=== PATIENT | male | born 1985 | race African-American/Black ===

== ENCOUNTER 2019-07-15 03:53 | Emergency (ER) | payer BC, SELFPAY ==
--- NOTE | ~2019-07-15 | CT_ITS ---
EXAMINATION: CT abdomen pelvis w con DATE: 07/15/2019 05:07 INDICATION: Epigastric abdominal pain. Constipation. TECHNIQUE: Computed tomography (CT) of the abdomen and pelvis was performed with 100 mL Omnipaque 350 intravenous contrast. Automated exposure control and iterative reconstruction technique were employe d. The dose-length product was 218.28 mGy-cm. COMPARISON: None. FINDINGS: The visualized portions of the lung bases are clear without pneumonia or pleural effusion. The heart size is normal. No pericardial effusion. The liver, gallbladder, spleen, pancreas, adrenal glands, and kidneys are normal. There are no dilated loops of bowel. The appendix is not visualized. There are no pathologically enlarged lymph nodes. There is no free intraperitoneal fluid. There are b enign bone islands in the pelvis. IMPRESSION: 1. No specific etiology for the patient's symptoms. Reviewed, dictated and finalized at location A.
[2019-07-15 03:56] VITALS: BP 146/102; PULSE 80; RESP 18; TEMP 36.7; O2SAT 100
[2019-07-15 04:30] LABS: Basophils Absolute Auto 0.1 K/mm3 (0.0-0.1); Basophils Percent Auto 0.8 % (0.2-1.2); Eosinophils Absolute Auto 0.1 K/mm3 (0-0.3); Eosinophils Percent Auto 1.7 % (0-4.4); Hematocrit 47.2 % (42.0-52.0); Immature Granulocyte Absolute 0.02 K/mm3 (0.00-0.031); Immature Granulocyte Percent A 0.2 % (0-0.5); Lymphocytes Percent Auto 32.3 % (18.3-44.2); Mean Corpuscular HGB Conc 33.9 g/dl (32-36); Mean Corpuscular Hemoglobin 34.5 pg (26-34); Mean Corpuscular Volume 101.7 fl (80-100); Mean Platelet Volume 10.2 fl (7.4-10.4); Monocytes Absolute Auto 1.5 K/mm3 (0.1-0.6); Monocytes Percent Auto 17.6 % (2.6-8.5); Neutrophils Percent Auto 47.4 % (45.5-73.1); Platelet Count Result 221 k/mm3 (150-375); Red Blood Count 4.64 M/mm3 (4.6-6.20); White Blood Count 8.4 K/mm3 (4.5-10.0)
--- NOTE | 2019-07-15 04:36 | ED.ABDPAIN ---
HPI - Abdominal Pain General Chief Complaint: Abdominal Pain Stated Complaint: abd pain x 2 wks Time Seen by Provider: 07/15/19 04:25 Source: patient Mode of arrival: ambulatory Limitations: no limitations History of Present Illness HPI narrative: This patient is 34 yo male who presents with complaint of epigastric abdominal pain x 2 weeks. He states he has had constant pain that has gradually worsened. He initially thought his pain was due to eating something bad but his pain has continued. He has decreased appetite and he states he has not had anything to eat in 3 days . He also states he has not had a bowel movement since Saturday and he normally has 3 BMs per day. He has also noticed his urine has been darker than normal and he is nauseated. He admits to drinking alcohol daily but he has not drank since Saturday. MD elicited complaint: abdominal pain Pain Consistency: constant Location: epigastric Severity: severe Pain scale (0-10): 7 Radiation: epigastric Exacerbating factors: movement Associated symptoms: nausea, constipation and anorexia Related Data Home Medications Medication Instructions Recorded Confirmed pantoprazole [Protonix] 20 mg PO BID 07/15/19 Allergies Allergy/AdvReac Type Severity Reaction Status Date / Time No Known Allergies Allergy Verified 07/15/19 04:03 Review of Systems Review of Systems: All systems reviewed & are unremarkable except as noted in HPI and below Constitutional: Constitutional: Denies chills and Denies fever(s) Respiratory: Respiratory: Denies cough and Denies dyspnea Gastrointestinal: Gastrointestinal: Reports abdominal pain, Reports constipation and Reports nausea Genitourinary: Genitourinary: Denies dysuria [facility] Past Medical History Medical History (Updated 07/15/19 @ 07:00 by Roestta Castellanos MD) Patient denies medical problems Surgical History Surgical History (Updated 07/15/19 @ 06:53 by Rosetta Castellanos MD) No pertinent past surgical history Social History Social History (Updated 07/15/19 @ 04:37 by Rosetta Castellanos MD) Smoking packs per day: 1 Smoking cigarettes per day: 20.0 Smoking status: Current every day smoker Alcohol intake: current Alcohol use details: drinks daily Exam Narrative: Exam Narrative: GENERAL: Well-appearing, well-nourished, and in no acute distress. HEAD: Normocephalic, atraumatic EYES: PERRLA and EOMI, conjunctiva clear without discharge THROAT:Mucous membranes moist, Oropharynx normal without erythema, exudate, peritonsillar swelling or fluctuance NECK: Supple, without lymphadenopathy or mass RESPIRATORY: No respiratory distress, Airway patent, Respirations non-labored, Clear to auscultation without rales, rhonchi or wheeze HEART: Regular rate and rhythm. No murmur heard. Normal peripheral pulses. ABDOMEN: Soft, epigastric tenderness with guarding nondistended, normal active bowel sounds. No masses. No rebound EXTREMITIES: No edema, normal strength with full range of motion. SKIN: Warm, dry, normal color without rash NEURO: Alert and oriented x3. CN 2-12 grossly intact. No focal deficits. PSYCH: Normal mood and affect. Course Reevaluation(s) Reevaluation #1: I discussed with patient that he was found to have alcoholic hepatitis. CT read possible colitis but patient has no diarrhea or leukocytosis. I do not think this is due to colitis. He will continue taking his prescribed PPI. Date: 07/15/19 Time: 06:54 Vital Signs Vital signs: Vital Signs Temperature 98.1 F 07/15/19 03:56 Pulse Rate 80 07/15/19 03:56 Respiratory Rate 18 07/15/19 03:56 Blood Pressure 146/102 H 07/15/19 03:56 Pulse Oximetry 100 07/15/19 03:56 Temperature 98.1 F 07/15/19 03:56 Pulse Rate 61 07/15/19 07:25 Respiratory Rate 18 07/15/19 07:25 Blood Pressure 113/80 07/15/19 07:25 Pulse Oximetry 98 07/15/19 07:25 MDM - Abdominal Pain Lab Data Attestation: I revie
[2019-07-15 04:45] LABS: Add Urine Microscopic? YES; Appearance Urine Clear (Clear); Bacteria Urine Trace /hpf; Bilirubin Urine Negative (Negative); Blood Urine 1+ (Negative); Color Urine Amber (Yellow); Glucose Urine UA Negative (Negative); Ketones Urine 2+ mg/dL (Negative); Leukocyte Esterase Ur Negative LEU/UL (Negative); Mucus Urine Heavy /lpf; Nitrate Urine Negative (Negative); Protein Urine 2+ mg/dL (Negative); Squamous Epithelial Cell Urine Rare /hpf (Few)
[2019-07-15 04:48] LABS: Alanine Aminotransferase 159 U/L (4-50); Albumin Level 5.3 g/dL (3.5-5.1); Alkaline Phosphatase 119 U/L (38-126); Aspartate Amino Transferase 194 U/L (17-59); Bilirubin,Total 1.5 mg/dL (0.2-1.3); Blood Urea Nitrogen 12 mg/dL (9-20); Carbon Dioxide 30 mmol/L (22-30); Chloride 98 mmol/L (98-107); Estimated CRCL calculation 107 ml/min; Estimated Glomerular Filt Rate > 60; Glucose 85 mg/dL (75-110); Lipase 173 U/L (23-300); Potassium 3.6 mmol/L (3.4-5.0); Sodium 136 mmol/L (137-145)
[2019-07-15] MEDS: LACTATED RINGERS 1,000 ML 999 ML IV CONT (04:48)
[2019-07-15] MEDS: ONDANSETRON INJ 4 MG/2 ML VIAL IV PUSH (04:48)
[2019-07-15] MEDS: MORPHINE SULFATE 4 MG/ML INJ IV PUSH (04:49)
[2019-07-15 05:52] LABS: Hepatitis B Surface Antigen Negative (Negative)
[2019-07-15 05:59] LABS: HAV RESULT Negative (Negative); Hepatitis B Core IgM Result Negative (Negative)
[2019-07-15 06:09] LABS: Hepatitis C Virus Antibody Negative (Negative)
[2019-07-15 06:22] VITALS: BP 116/85; PULSE 60; RESP 20; O2SAT 98
[2019-07-15 07:25] VITALS: BP 113/80; PULSE 61; RESP 18; O2SAT 98
== END 2019-07-15 07:20 | disposition home or self-care (01) ==
PROVIDERS: Emergency Provider General Practice
DX: K70.10 Alcoholic hepatitis without ascites (principal); F17.210 Nicotine dependence, cigarettes, uncomplicated
CPT/HCPCS: 36415; 74177; 80053; 80074; 81001; 83690; 85025; 96361; 96374; 96375; 99284; J2270; J2405; J7120; Q9967

== ENCOUNTER 2019-09-25 00:26 | Emergency (ER) | payer BC, SELFPAY ==
[2019-09-25 00:29] VITALS: BP 149/95; PULSE 77; RESP 14; TEMP 37.1; O2SAT 100
[2019-09-25 01:10] LABS: Basophils Absolute Auto 0.1 K/mm3 (0.0-0.1); Basophils Percent Auto 0.7 % (0.2-1.2); Eosinophils Absolute Auto 0.1 K/mm3 (0-0.3); Eosinophils Percent Auto 1.7 % (0-4.4); Hematocrit 41.7 % (42.0-52.0); Hemoglobin 14.3 g/dL (14.0-18.0); Immature Granulocyte Absolute 0.02 K/mm3 (0.00-0.031); Immature Granulocyte Percent A 0.3 % (0-0.5); Lymphocytes Percent Auto 30.3 % (18.3-44.2); Mean Corpuscular HGB Conc 34.3 g/dl (32-36); Mean Platelet Volume 9.8 fl (7.4-10.4); Monocytes Percent Auto 13.4 % (2.6-8.5); Neutrophils Absolute Auto 3.9 K/mm3 (1.3-6.7); Neutrophils Percent Auto 53.6 % (45.5-73.1); Platelet Count Result 233 k/mm3 (150-375); Red Blood Count 4.21 M/mm3 (4.6-6.20); Red Cell Distribution Width 12.3 % (11.5-14.5); White Blood Count 7.3 K/mm3 (4.5-10.0)
[2019-09-25 01:23] LABS: Alanine Aminotransferase 25 U/L (4-50); Albumin Level 4.3 g/dL (3.5-5.1); Alkaline Phosphatase 86 U/L (38-126); Anion Gap 8.4 mmol/L (7-16); Aspartate Amino Transferase 44 U/L (17-59); Bilirubin,Total 0.6 mg/dL (0.2-1.3); Blood Urea Nitrogen 9 mg/dL (9-20); Calcium 9.3 mg/dL (8.4-10.2); Carbon Dioxide 29 mmol/L (22-30); Chloride 102 mmol/L (98-107); Estimated CRCL calculation 117 ml/min; Estimated Glomerular Filt Rate > 60; Glucose 107 mg/dL (75-110); Lipase 159 U/L (23-300); Potassium 3.4 mmol/L (3.4-5.0); Sodium 136 mmol/L (137-145)
[2019-09-25] MEDS: LIDOCAINE HCL 2% VISC SOLN 15 ML UDC 20 ML PO (01:36)
[2019-09-25] MEDS: SODIUM CHLORIDE 0.9% IV 1,000 ML 999 ML IV CONT (01:36)
[2019-09-25] MEDS: MAG HYDROX/AL HYDROX/SIMETH 30 ML UDC PO (01:36)
--- NOTE | 2019-09-25 01:47 | ED.ABDPAIN ---
HPI - Abdominal Pain General Chief Complaint: Abdominal Pain Stated Complaint: abdominal/back pain Time Seen by Provider: 09/25/19 00:47 History of Present Illness HPI narrative: Patient is a 34-year-old male who presents ER with epigastric abdominal pain for last 2 days. Burning and intermittent in nature. Associate with some mild lower back pain as well. No known trauma. Has not had alcohol for over a week. Has tried Pepto-Bismol without relief of discomfort. No fevers or chills or sweats. No diarrhea or constipation. Not associated with eating or drinking. Related Data Home Medications Medication Instructions Recorded Confirmed pantoprazole [Protonix] 20 mg PO BID 07/15/19 Allergies Allergy/AdvReac Type Severity Reaction Status Date / Time No Known Allergies Allergy Verified 09/25/19 00:32 Review of Systems Review of Systems: All systems reviewed & are unremarkable except as noted in HPI and below Constitutional: Constitutional: Denies chills, Denies fever(s) and Denies weakness ENT: Denies nasal congestion and Denies sore throat Gastrointestinal: Gastrointestinal: Reports abdominal pain, Denies constipation, Denies diarrhea, Denies nausea and Denies vomiting Musculoskeletal: Musculoskeletal: Reports back pain and Denies muscle cramps Neurologic: Denies focal weakness and Denies numbness PMFSH Past Medical History Medical History (Updated 09/25/19 @ 01:52 by Woo Nicholson MD) Patient denies medical problems Surgical History Surgical History (Updated 07/15/19 @ 06:53 by Rosetta Castellanos MD) No pertinent past surgical history Social History Social History (Updated 07/15/19 @ 04:37 by Rosetta Castellanos MD) Smoking packs per day: 1 Smoking cigarettes per day: 20.0 Smoking status: Current every day smoker Alcohol intake: current Exam Narrative: Exam Narrative: GENERAL: Well-appearing, well-nourished, and in no acute distress. HEAD: Normocephalic, atraumatic. ENT: Mucous membranes moist. CHEST: Clear to auscultation. No respiratory distress. HEART: Regular rate and rhythm. Normal peripheral pulses. ABDOMEN: Soft, mild epigastric discomfort without rebound or guarding, nondistended, normal active bowel sounds. EXTREMITIES: Normal range of motion. No edema. NEURO: Alert and oriented x3. PSYCH: Normal mood and affect. Course Course Emergency Course: Mild improvement with GI cocktail. Discussed discharge with Vivian, he reports this worked for him last time. Recommend follow-up with PCP and possible referral to GI. Vital Signs Vital signs: Vital Signs Temperature 98.7 F 09/25/19 00:29 Pulse Rate 77 09/25/19 00:29 Respiratory Rate 14 09/25/19 00:29 Blood Pressure 149/95 H 09/25/19 00:29 Pulse Oximetry 100 09/25/19 00:29 Temperature 98.7 F 09/25/19 00:29 Pulse Rate 77 09/25/19 00:29 Respiratory Rate 14 09/25/19 00:29 Blood Pressure 149/95 H 09/25/19 00:29 Pulse Oximetry 100 09/25/19 00:29 MDM - Abdominal Pain Lab Data Result diagrams: 09/25/19 01:03 09/25/19 01:03 Labs: Lab Results 09/25/19 09/25/19 Range/Units 01:03 01:03 WBC 7.3 (4.5-10.0) K/mm3 RBC 4.21 L (4.6-6.20) M/mm3 Hgb 14.3 (14.0-18.0) g/dL Hct 41.7 L (42.0-52.0) % MCV 99.0 (80-100) fl MCH 34.0 (26-34) pg MCHC 34.3 (32-36) g/dl RDW 12.3 (11.5-14.5) % Plt Count 233 (150-375) k/mm3 MPV 9.8 (7.4-10.4) fl Immature Gran % (Auto) 0.3 (0-0.5) % Neut % (Auto) 53.6 (45.5-73.1) % Lymph % (Auto) 30.3 (18.3-44.2) % Callahan % (Auto) 13.4 H (2.6-8.5) % Eos % (Auto) 1.7 (0-4.4) % Baso % (Auto) 0.7 (0.2-1.2) % Lymph # (Auto) 2.20 (0.9-3.2) K/mm3 Callahan # (Auto) 1.0 H (0.1-0.6) K/mm3 Eos # (Auto) 0.1 (0-0.3) K/mm3 Baso # (Auto) 0.1 (0.0-0.1) K/mm3 Abs Immat Gran (auto) 0.02 (0.00-0.031) K/mm3 Absolute Neuts (auto) 3.9 (1.3-6.7) K/mm3 Absolute Nucleated RBC
[2019-09-25 02:18] LABS: Add Urine Microscopic? YES; Appearance Urine Clear (Clear); Bacteria Urine Trace /hpf; Bilirubin Urine Negative (Negative); Blood Urine Negative (Negative); Color Urine Yellow (Yellow); Glucose Urine UA Negative (Negative); Ketones Urine 1+ mg/dL (Negative); Leukocyte Esterase Ur Negative LEU/UL (Negative); Mucus Urine Heavy /lpf; Nitrate Urine Negative (Negative); Protein Urine 1+ mg/dL (Negative); Specific Grav Ur 1.025 (1.001-1.035); Squamous Epithelial Cell Urine Occasional /hpf (Few); WBC Urine 0-3 /hpf
[2019-09-25 02:35] VITALS: BP 137/106; PULSE 63; RESP 18; O2SAT 100
[2019-09-25 02:40] VITALS: BP 137/106; PULSE 63; RESP 18; O2SAT 100
== END 2019-09-25 02:33 | disposition home or self-care (01) ==
PROVIDERS: Emergency Provider Emergency Medicine
DX: K21.9 Gastro-esophageal reflux disease without esophagitis (principal); F17.210 Nicotine dependence, cigarettes, uncomplicated
CPT/HCPCS: 36415; 80053; 81001; 83690; 85025; 96360; 99283; A9270; J7030

== ENCOUNTER 2020-01-06 22:23 | Emergency (ER) | payer BC, SELFPAY ==
[2020-01-06 22:27] VITALS: BP 149/97; PULSE 70; RESP 16; TEMP 36.5; O2SAT 100
--- NOTE | 2020-01-06 23:01 | ED.BACK ---
HPI - Back Pain/Injury General Chief Complaint: Back Pain/Injury Stated Complaint: lower back pain Time Seen by Provider: 01/06/20 22:48 Source: patient, RN notes reviewed and old records reviewed History of Present Illness HPI Narrative: 34-year-old male presents to emergency department for bilateral midthoracic back pain that started yesterday. Patient states he has never had this pain before in the past. Pain is worse with movement. He tried Tylenol earlier today to help with the pain. Denies chest pain or shortness of breath. No abdominal pain. No nausea or vomiting. No numbness or tingling. Related Data Home Medications Medication Instructions Recorded Confirmed pantoprazole [Protonix] 20 mg PO BID 07/15/19 Allergies Allergy/AdvReac Type Severity Reaction Status Date / Time No Known Allergies Allergy Verified 09/25/19 00:32 Review of Systems Review of Systems: Narrative: CONSTITUTIONAL: Denies fever, chills, or sweats. EYES: Denies visual changes, redness, or discharge. ENT: Denies rhinorrhea, congestion, sore throat, or otalgia. CARDIOVASCULAR: Denies chest pain, palpitations, or edema. RESPIRATORY: Denies cough or dyspnea. GASTROINTESTINAL: Denies abdominal pain, nausea, vomiting, or diarrhea. GENITOURINARY: Denies dysuria or hematuria. SKIN: Denies rash or itching. MUSCULOSKELETAL: Denies back pain, joint pain, or myalgia. NEUROLOGIC: Denies headache, numbness, dizziness, or weakness. PSYCHIATRIC: Denies anxiety or depression. All systems reviewed & are unremarkable except as noted in HPI and below (ROS) PMFSH Past Medical History Medical History Patient denies medical problems Surgical History Surgical History No pertinent past surgical history Social History Social History Smoking packs per day: 1 Smoking cigarettes per day: 20.0 Smoking status: Current every day smoker Alcohol intake: current Exam Narrative: Exam Narrative: GENERAL: Well-appearing, well-nourished, and in no acute distress. HEAD: Normocephalic, atraumatic. EYES: PERRLA and EOMI. ENT: Nares clear, no rhinorrhea or epistaxis. Mucous membranes moist. NECK: Supple. CHEST: Clear to auscultation. No respiratory distress. HEART: Regular rate and rhythm. No murmur heard. Normal peripheral pulses. ABDOMEN: Soft, nontender, nondistended, normal active bowel sounds. EXTREMITIES: Normal range of motion. No edema. SKIN: Warm, dry, no rash. NEURO: No focal deficits. Alert and oriented x3. PSYCH: Normal mood and affect. Course Reevaluation(s) Reevaluation #1: 2342 -reevaluated patient, pain improved. Pain likely musculoskeletal. Counseled patient to take Tylenol or Motrin/ibuprofen as needed for pain. Follow-up with his medical provider within 1 week return to emergency department if symptoms persist, worsen, or other concerns. Vital Signs Vital signs: Vital Signs Temperature 36.5 C 01/06/20 22:27 Pulse Rate 70 01/06/20 22:27 Respiratory Rate 16 01/06/20 22:27 Blood Pressure 149/97 H 01/06/20 22:27 Pulse Oximetry 100 01/06/20 22:27 Temperature 36.5 C 01/06/20 22:27 Pulse Rate 68 01/07/20 00:27 Respiratory Rate 18 01/07/20 00:27 Blood Pressure 133/98 H 01/07/20 00:27 Pulse Oximetry 98 01/07/20 00:27 MDM - Back Pain/Injury Medical Records Attestation: I reviewed the patient's medical records. Discharge Plan Discharge Clinical Impression: Musculoskeletal back pain Patient Disposition: Home, Self-Care Condition: Stable Instructions: Musculoskeletal Pain (ED) Additional Instructions: 1. Take Tylenol or Motrin/ibuprofen as needed for pain. 2. Follow-up with your medical provider within 1 week Prescriptions: No Action pantoprazole [Protonix] 20 mg Tablet,Delayed Release (Dr/Ec) 20 mg PO BID RF:
[2020-01-06] MEDS: KETOROLAC (*BKC) 60 MG/2 ML VIAL 30 MG IM (23:16)
[2020-01-06] MEDS: diazePAM INJ (*CRX) 10 MG/2 ML SYRINGE 2 MG IM (23:18)
[2020-01-07 00:27] VITALS: BP 133/98; PULSE 68; RESP 18; O2SAT 98
== END 2020-01-07 00:32 | disposition home or self-care (01) ==
PROVIDERS: Emergency Provider Emergency Medicine
DX: M54.6 Pain in thoracic spine (principal); F17.210 Nicotine dependence, cigarettes, uncomplicated
CPT/HCPCS: 96372; 99284; J1885; J3360

== ENCOUNTER 2021-03-12 10:21 | Emergency (ER) | payer BC, SELFPAY ==
--- NOTE | ~2021-03-12 | CT_ITS ---
EXAMINATION: CT abdomen pelvis w con DATE: 03/12/2021 11:31 INDICATION: Abdomen pain, nausea and vomiting TECHNIQUE: Computed tomography (CT) of the abdomen and pelvis was performed with 100 cc Omnipaque 350 intravenous contrast. The dose-length product was 232.79 mGy-cm. Automated exposure control and iter ative reconstruction technique were employed. COMPARISON: CT dated 07/15/2019. FINDINGS: Lung bases unremarkable. No significant pleural or pericardial effusion. No significant vas cular abnormality. No lymphadenopathy. Nonobstructive bowel gas pattern. No free air or free fluid. T he liver, spleen, pancreas, adrenal glands and kidneys are unremarkable. Gallbladder is present. No f ree air or free fluid. No acute osseous abnormality. IMPRESSION: 1. No acute abdominal abnormality. Reviewed, dictated and finalized at location A. EON PARTNER
--- NOTE | ~2021-03-12 | XR_ITS ---
EXAMINATION: XR chest 1V portable 03/12/2021 11:15 INDICATION: Epigastric pain PROCEDURE: AP portable chest COMPARISON: No prior studies for comparison. FINDINGS: The lungs are clear. The cardiomediastinal silhouette is within normal limits. There are no pleural effusions. There is no pneumothorax suspected. IMPRESSION: 1: NO ACUTE CARDIOPULMONARY DISEASE. Reviewed, dictated and finalized at location A. PAPERER
[2021-03-12 10:26] VITALS: BP 177/110; PULSE 59; RESP 16; TEMP 36.1; O2SAT 100
[2021-03-12 10:45] LABS: Basophils Percent Auto 0.4 % (0.2-1.2); Eosinophils Absolute Auto 0.1 K/mm3 (0-0.3); Hematocrit 42.5 % (42.0-52.0); Hemoglobin 14.6 g/dL (14.0-18.0); Immature Granulocyte Absolute 0.02 K/mm3 (0.00-0.031); Immature Granulocyte Percent A 0.3 % (0-0.5); Lymphocytes Absolute Auto 2.18 K/mm3 (0.9-3.2); Lymphocytes Percent Auto 30.8 % (18.3-44.2); Mean Corpuscular HGB Conc 34.4 g/dl (32-36); Mean Corpuscular Hemoglobin 35.5 pg (26-34); Mean Corpuscular Volume 103.4 fl (80-100); Mean Platelet Volume 9.4 fl (7.4-10.4); Monocytes Absolute Auto 1.2 K/mm3 (0.1-0.6); Monocytes Percent Auto 17.2 % (2.6-8.5); Neutrophils Absolute Auto 3.6 K/mm3 (1.3-6.7); Neutrophils Percent Auto 50.3 % (45.5-73.1); Platelet Count Result 216 k/mm3 (150-375); Red Blood Count 4.11 M/mm3 (4.6-6.20); Red Cell Distribution Width 12.8 % (11.5-14.5); White Blood Count 7.1 K/mm3 (4.5-10.0)
[2021-03-12 10:59] LABS: Alanine Aminotransferase 28 U/L (4-50); Albumin Level 4.7 g/dL (3.5-5.1); Alkaline Phosphatase 118 U/L (38-126); Anion Gap 10 mmol/L (8-16); Aspartate Amino Transferase 41 U/L (17-59); Bilirubin,Total 0.9 mg/dL (0.2-1.3); Blood Urea Nitrogen 7 mg/dL (9-20); Calcium 9.8 mg/dL (8.4-10.2); Carbon Dioxide 29 mmol/L (22-30); Chloride 99 mmol/L (98-107); Estimated CRCL calculation 100 ml/min; Estimated Glomerular Filt Rate > 60; Glucose 112 mg/dL (65-110); Lipase 133 U/L (23-300); Potassium 3.2 mmol/L (3.4-5.0); Sodium 138 mmol/L (137-145)
--- NOTE | 2021-03-12 10:59 | ECG_ITS ---
Measurements Intervals [place] Rate: 51 P: 78 DE: 173 QRS: 19 QRSD: 90 T: 23 QT: 441 QTc: 409 Interpretive Statements SINUS BRADYCARDIA POSSIBLE LEFT ATRIAL ENLARGEMENT INCOMPLETE RIGHT BUNDLE BRANCH BLOCK POSSIBLE LEFT VENTRICULAR HYPERTROPHY BASELINE ARTIFACT- I, II, III, AVR, AVL, AVF, V1-V6 BORDERLINE ECG Electronically Signed On 03-12-2021 16:03:24 TREATMENT SUPERVISOR by Rickie Saul D.O.
[2021-03-12] MEDS: FAMOTIDINE 20 MG/2 ML VIAL IV PUSH (11:16)
[2021-03-12] MEDS: SODIUM CHLORIDE 0.9% IV 1,000 ML 999 ML IV CONT (11:16)
[2021-03-12] MEDS: MORPHINE SULFATE (*CRX) 2 MG/ML INJ IV PUSH (11:16)
--- NOTE | 2021-03-12 11:18 | ED.GENADULT ---
HPI - General Adult General Chief complaint: Abdominal Pain Stated complaint: abd pain Time Seen by Provider: 03/12/21 10:35 Source: patient Mode of arrival: ambulatory Limitations: no limitations History of Present Illness HPI narrative: Patient presents for evaluation of abdominal pain for the last 2 days. He indicates he was having of a bowel movement when he had an episode of vomiting. He has had constant abdominal pain since that time. He states at times his pain is sharp and other times it is dull. He rates pain 8/10 in severity. Pain is worse with standing and walking. He had similar symptoms one time in the past but did not have a medical evaluation for his symptoms. He denies any chest pain, SOB or cough. His last bowel movement was today, loose, green in appearance and without the presence of blood or mucous. He did have nausea and dry heaves earlier today. He drinks a few ETOH containing beverages per day. He states that he smokes marijuana daily. No hx of abdominal surgeries. Denies any urinary symptoms. Related Data Home Medications Medication Instructions Recorded Confirmed pantoprazole [Protonix] 20 mg PO BID 07/15/19 Allergies Allergy/AdvReac Type Severity Reaction Status Date / Time No Known Allergies Allergy Verified 03/12/21 10:31 Review of Systems Review of Systems: CONSTITUTIONAL: Denies fever, chills, or sweats. EYES: Denies visual changes, redness, or discharge. ENT: Denies rhinorrhea, congestion, sore throat, or otalgia. CARDIOVASCULAR: Denies chest pain, palpitations, or edema. RESPIRATORY: Denies cough or dyspnea. GASTROINTESTINAL: Reports abdominal pain, nausea, vomiting, loose stool GENITOURINARY: Denies dysuria or hematuria. SKIN: Denies rash or itching. MUSCULOSKELETAL: Denies back pain, joint pain, or myalgia. NEUROLOGIC: Denies headache, numbness, dizziness, or weakness. PSYCHIATRIC: Denies anxiety or depression. [facility] Past Medical History Medical History Patient denies medical problems Surgical History Surgical History No pertinent past surgical history Family History Family History Mother No pertinent past medical history Social History Social History Smoking packs per day: 1 Smoking cigarettes per day: 20.0 Smoking status: Current every day smoker Alcohol intake: current Alcohol use details: drinks daily Substance use: current Substance use type: marijuana Additional living arrangements comments: Lives with girlfriend Gender identity (if verbalized by the patient): Male Sexual Orientation (if Verbalized by the Patient): Straight or Heterosexual Spiritual care concerns: No Exam Narrative: GENERAL: Well-appearing, well-nourished, and in no acute distress. HEAD: Normocephalic, atraumatic. EYES: PERRLA and EOMI. ENT: Nares clear, no rhinorrhea or epistaxis. Mucous membranes moist. Oropharynx without tonsillar hypertrophy exudate or other lesions. Bilateral TMs pearly medrano nonbulging NECK: Supple. No adenopathy or masses. No carotid bruits or JVD CHEST: Clear to auscultation. No respiratory distress. No wheezes rales or rhonchi HEART: Regular rate and rhythm. No murmur heard. Normal peripheral pulses. ABDOMEN: Soft, epigastric tenderness without rebound or guarding. Abdomen is nondistended, normal active bowel sounds. EXTREMITIES: Normal range of motion. No edema. SKIN: Warm, dry, no rash. NEURO: No focal deficits. Alert and oriented x3. PSYCH: Normal mood and affect. Course Course Emergency Course: This is a 35-year-old male who presented with complaints of nausea, vomiting, diarrhea. Influenza was negative. Covid was negative. Chest x-ray was negative. CT abdomen pelvis was negative.
[2021-03-12 11:32] LABS: Magnesium 1.7 mg/dL (1.6-2.3)
[2021-03-12] MEDS: POTASSIUM CHLORIDE 20 MEQ TABLET 40 MEQ PO (11:32)
[2021-03-12 11:35] LABS: Troponin I < 0.012 ng/mL (0.000-0.034)
[2021-03-12 11:51] LABS: SARS-CoV-2 RNA PCR Negative
--- NOTE | 2021-03-12 12:05 | PC.NURSE ---
1 liter NS infused.
[2021-03-12 12:45] VITALS: BP 136/88; PULSE 68; RESP 14; O2SAT 97
[2021-03-12 13:25] LABS: Add Urine Microscopic? YES; Appearance Urine Clear (Clear); Bilirubin Urine Negative (Negative); Blood Urine Negative (Negative); Color Urine Straw (Yellow); Glucose Urine UA Negative (Negative); Ketones Urine Trace mg/dL (Negative); Leukocyte Esterase Ur Negative LEU/UL (Negative); Mucus Urine Rare /lpf; Nitrate Urine Negative (Negative); Protein Urine Negative (Negative); RBC Urine 0-2 /hpf (0-2); Urobilinogen Urine Negative mg/dL (<2.0); WBC Urine 0-3 /hpf
[2021-03-12 13:41] LABS: Specific Grav Ur 1.045 (1.001-1.035)
== END 2021-03-12 14:05 | disposition home or self-care (01) ==
PROVIDERS: Emergency Medicine; Emergency Provider Nurse Practitioner
DX: R10.13 Epigastric pain (principal); R11.2 Nausea with vomiting, unspecified; R19.7 Diarrhea, unspecified; Z20.822 Contact with and (suspected) exposure to COVID-19; F17.210 Nicotine dependence, cigarettes, uncomplicated; R00.1 Bradycardia, unspecified; R94.31 Abnormal electrocardiogram [ECG] [EKG]
CPT/HCPCS: 36415; 71045; 74177; 80053; 81001; 83690; 83735; 84484; 85025; 87804; 93005; 96361; 96374; 96375; 99284; A9270; C9803; J2270; J7030; Q9967; U0003; U0005

== ENCOUNTER 2021-12-01 11:40 | Emergency (ER) | payer BC, SELFPAY ==
[2021-12-01] VITALS (8 sets, daily range): BP systolic 133–156; BP diastolic 90–107; PULSE 67–103; RESP 14–18; TEMP 36.4–36.8; O2SAT 98–100
--- NOTE | ~2021-12-01 | CT_ITS ---
EXAMINATION: CT abdomen pelvis w con INDICATION: Upper abdominal pain TECHNIQUE: Computed tomographic images of the abdomen and pelvis were obtained after the administrati on of 100 cc of Omnipaque 350 intravenous contrast. The dose-length product (DLP) was 197.70 mGy-cm. Automated exposure control and iterative reconstruction technique were employed. COMPARISON: 03/12/2021 FINDINGS: The lung bases are clear. The heart size is normal. The liver, spleen, pancreas, gallbladde r, and adrenal glands are normal. The kidneys are unremarkable. No pathologically enlarged abdominal or pelvic lymph nodes are identified. There is no free intraperitoneal gas or evidence of bowel obstr uction. The visualized osseous structures are unremarkable. The appendix is not definitely visualized . IMPRESSION: 1. No CT correlate for the patient's symptoms. Reviewed, dictated and finalized at location A.
--- NOTE | 2021-12-01 12:00 | ECG_ITS ---
Measurements Intervals [place] Rate: 70 P: -64 SD: 125 QRS: 53 QRSD: 87 T: 63 QT: 397 QTc: 430 Interpretive Statements ECTOPIC ATRIAL RHYTHM INCOMPLETE RIGHT BUNDLE BRANCH BLOCK VOLTAGE CRITERIA FOR LVH BASELINE ARTIFACT- I, II, AVR BORDERLINE ECG COMPARED TO ECG 03/12/2021 11:46:16 ECTOPIC ATRIAL RHYTHM Electronically Signed On 12-01-2021 12:04:26 CDT by Rickie Saul D.O.
--- NOTE | 2021-12-01 12:29 | ED.DIZZY ---
HPI - Dizziness General Chief Complaint: Dizziness Stated Complaint: dizziness and abdominal pain Time Seen by Provider: 12/01/21 12:01 Source: patient, RN notes reviewed and old records reviewed Mode of arrival: ambulatory Limitations: no limitations History of Present Illness HPI Narrative: This is a 36 year old male with history of hypertension who presents for evaluation of weakness and abdominal pain. He states he developed weakness and lightheadedness last night after taking out the trash. He states he had to crawl up the stairs to his room because he was weakness. He has generalized weakness and mid abdominal pain. His mid abdominal pain is constant ache. He does not have associated URI symptoms. HE denies associated nausea, vomiting or diarrhea. He is unsure of similar episodes. HE has been taking amlodipine for 5 days but he did not take today. MD elicited complaint: lightheadedness Description: lightheadedness History of similar symptoms: No Related Data Home Medications Medication Instructions Recorded Confirmed pantoprazole 20 mg tablet,delayed 20 mg PO BID 07/15/19 release (Protonix) Allergies Allergy/AdvReac Type Severity Reaction Status Date / Time No Known Allergies Allergy Verified 12/01/21 12:00 Review of Systems Review of Systems: All systems reviewed & are unremarkable except as noted in HPI and below Constitutional: Constitutional: Denies chills, Reports fatigue and Denies fever(s) ENT: Denies dizziness, Denies nasal congestion and Denies sore throat Cardiovascular: Cardiovascular: Denies chest pain and Denies radiating jaw, neck or arm pain Respiratory: Respiratory: Denies chest congestion, Denies cough and Denies dyspnea Gastrointestinal: Gastrointestinal: Reports abdominal pain, Denies nausea and Denies vomiting [facility] Past Medical History Medical History (Updated 12/01/21 @ 16:54 by Rosetta Castellanos MD) Hypertension Surgical History Surgical History No pertinent past surgical history Family History Family History Mother No pertinent past medical history Social History Social History Smoking packs per day: 1 Smoking cigarettes per day: 20.0 Smoking status: Current every day smoker Alcohol intake: current Alcohol use details: drinks daily Substance use: current Substance use type: marijuana Additional living arrangements comments: Lives with girlfriend Gender identity (if verbalized by the patient): Male Sexual Orientation (if Verbalized by the Patient): Straight or Heterosexual Spiritual care concerns: No Exam Const: General: no acute distress and alert Nutritional Appearance: well nourished Orientation/consciousness: patient oriented x3 Limitations: no limitations HENMT: Head: normal to inspection Face and sinus: normal facial exam Mouth: Yes Normal oral and palatal mucosa present Eyes: EOM: EOMs intact bilaterally Neck: Neck: normal visual inspection Chest: Chest palpation & inspection: normal inspection of the chest Resp: Effort & Inspection: normal respiratory effort Auscultation: clear to auscultation bilaterally Cardio: Rate: regular rate Rhythm: regular rhythm Heart sounds: no murmurs GI: GI Palp: Yes Soft to palpation, Yes Tenderness to palpation present (GI) (epigastric), No Guarding due to palpation present (GI) and No Rigid due to palpation Auscultation: normal bowel sounds Skin: General skin exam: normal color Rashes: no rashes Neuro: General: patient oriented x3, moves all extremities and CN's II-XI intact bilaterally Extrem: General: normal to inspection Psych: Mental Status: mental status grossly normal Affect: normal affect Attitude: cooperative Course Reevaluation(s) Reevaluation #1: PAtient denies c
[2021-12-01] MEDS: LACTATED RINGERS 1,000 ML 999 ML IV CONT ×2 (12:52→14:10)
[2021-12-01 12:58] LABS: Alanine Aminotransferase 30 U/L (6-50); Albumin Level 4.4 g/dL (3.5-5.1); Alkaline Phosphatase 123 U/L (38-126); Anion Gap 9 mmol/L (8-16); Aspartate Amino Transferase 62 U/L (17-59); Bilirubin,Total 0.9 mg/dL (0.2-1.3); Blood Urea Nitrogen 7 mg/dL (9-20); Calcium 9.4 mg/dL (8.4-10.2); Carbon Dioxide 29 mmol/L (22-30); Chloride 99 mmol/L (98-107); Estimated CRCL calculation 103 ml/min; Estimated Glomerular Filt Rate > 60; Glucose 94 mg/dL (65-110); Lipase 124 U/L (23-300); Potassium 3.3 mmol/L (3.4-5.0); Sodium 137 mmol/L (137-145)
[2021-12-01 13:34] LABS: Red Blood Count 4.02 M/mm3 (4.6-6.20); White Blood Count 5.1 K/mm3 (4.5-10.0)
[2021-12-01 13:35] LABS: Hematocrit 41.9 % (42.0-52.0); Hemoglobin 14.4 g/dL (14.0-18.0); Mean Corpuscular HGB Conc 34.4 g/dl (32-36); Mean Corpuscular Hemoglobin 35.8 pg (26-34); Mean Corpuscular Volume 104.2 fl (80-100); Mean Platelet Volume 9.7 fl (7.4-10.4); Platelet Count Result 270 k/mm3 (150-375); Red Cell Distribution Width 12.2 % (11.5-14.5)
[2021-12-01 13:37] LABS: Eosinophils Percent Auto 1.4 % (0-4.4); Lymphocytes Percent Auto 31.9 % (18.3-44.2); Monocytes Percent Auto 19.9 % (2.6-8.5); Neutrophils Percent Auto 45.6 % (45.5-73.1)
[2021-12-01 13:38] LABS: Basophils Absolute Auto 0.1 K/mm3 (0.0-0.1); Eosinophils Absolute Auto 0.1 K/mm3 (0-0.3); Immature Granulocyte Absolute 0.01 K/mm3 (0.00-0.031); Immature Granulocyte Percent A 0.2 % (0-0.5); Lymphocytes Absolute Auto 1.62 K/mm3 (0.9-3.2); Neutrophils Absolute Auto 2.3 K/mm3 (1.3-6.7)
[2021-12-01 13:41] LABS: Appearance Urine Clear (Clear); Bilirubin Urine 2+ (Negative); Blood Urine Trace-intact (Negative); Color Urine Dark Yellow (Yellow); Glucose Urine UA Negative (Negative); Ketones Urine 4+ mg/dL (Negative); Leukocyte Esterase Ur Negative LEU/UL (Negative); Nitrate Urine Negative (Negative); Protein Urine 1+ mg/dL (Negative); Specific Grav Ur 1.025 (1.001-1.035); pH Urine 6.5 (5.0-9.0)
[2021-12-01 13:54] LABS: Add Urine Microscopic? YES; Mucus Urine Heavy /lpf; Squamous Epithelial Cell Urine Rare /hpf (Few); WBC Urine 0-3 /hpf
[2021-12-01 14:05] LABS: Lactic Acid Reflex 1.1 mmol/L (0.7-2.0)
[2021-12-01] MEDS: POTASSIUM CHLORIDE 20 MEQ TABLET 40 MEQ PO (14:10)
[2021-12-01 14:53] LABS: Creatine Kinase 177 U/L (55-170); Magnesium 1.5 mg/dL (1.6-2.3)
[2021-12-01] MEDS: PANTOPRAZOLE SODIUM IV 40 MG VIAL IV PUSH (14:59)
[2021-12-01 15:36] LABS: SARS-CoV-2 RNA PCR Negative
[2021-12-01] MEDS: KETOROLAC 30 MG/ML VIAL (*BKC) IV PUSH (16:09)
== END 2021-12-01 17:03 | disposition home or self-care (01) ==
PROVIDERS: Emergency Provider General Practice
DX: R10.13 Epigastric pain (principal); E86.0 Dehydration; I10 Essential (primary) hypertension; F17.210 Nicotine dependence, cigarettes, uncomplicated; F12.90 Cannabis use, unspecified, uncomplicated; Z20.822 Contact with and (suspected) exposure to COVID-19
CPT/HCPCS: 36415; 74177; 80053; 81001; 82550; 83605; 83690; 83735; 84443; 85025; 93005; 96361; 96365; 96375; 99284; A9270; C9113; C9803; J0131; J1885; J7120; Q9967; U0003; U0005

== ENCOUNTER 2022-02-13 20:04 | Emergency (ER) | payer BC, SELFPAY ==
[2022-02-13 20:29] VITALS: BP 134/96; PULSE 93; RESP 16; TEMP 37.3; O2SAT 100
--- NOTE | 2022-02-13 22:47 | ED.GENADULT ---
HPI - General Adult General Chief complaint: Skin/Abscess/Foreign Body Stated complaint: right cheek abscess Time Seen by Provider: 02/13/22 21:46 History of Present Illness HPI narrative: This is a 36-year-old male presenting to ED with an abscess. Patient says over last 2 days he has had increased swelling and pain over his right cheek. He has had abscesses in the past. He denies systemic signs of illness such as fever chills nausea vomiting diarrhea. There is no swelling in his mouth or throat. Related Data Home Medications Medication Instructions Recorded Confirmed pantoprazole 20 mg tablet,delayed 20 mg PO BID 07/15/19 release (Protonix) Allergies Allergy/AdvReac Type Severity Reaction Status Date / Time No Known Allergies Allergy Verified 02/13/22 20:33 Review of Systems Review of Systems: CONSTITUTIONAL: Denies night sweats. EYES: No eye pain ENT: Denies rhinorrhea CARDIOVASCULAR: Denies palpitations RESPIRATORY: Denies hemoptysis GASTROINTESTINAL: Denies hematemesis GENITOURINARY: Denies hematuria. SKIN: Denies rash MUSCULOSKELETAL: Denies myalgia. NEUROLOGIC: Denies weakness. PSYCHIATRIC: Denies delusions PMFSH Past Medical History Medical History Hypertension Surgical History Surgical History No pertinent past surgical history Family History Family History Mother No pertinent past medical history Social History Social History Smoking packs per day: 1 Smoking cigarettes per day: 20.0 Smoking status: Current every day smoker Alcohol intake: current Alcohol use details: drinks daily Substance use: current Substance use type: marijuana Additional living arrangements comments: Lives with girlfriend Gender identity (if verbalized by the patient): Male Sexual Orientation (if Verbalized by the Patient): Straight or Heterosexual Spiritual care concerns: No Exam Narrative: APPEARANCE: No apparent distress. Head: atraumatic. EYES: EOMI, NOSE: Atraumatic NECK: Trachea midline RESPIRATORY: No increased rate of breathing CARDIOVASCULAR: RRR, ABDOMINAL: Non-distended MUSCULOSKELETAl: No obvious deformities NEURO: Alert. Moving 4/4 extremities SKIN:: patient has a 1 and half by 1 and half area of erythema and fluctuance over the right cheek. PSYCHIATRIC: Normal affect Course Vital Signs Vital signs: Vital Signs Temperature 99.2 F 02/13/22 20:29 Pulse Rate 93 02/13/22 20:29 Respiratory Rate 16 02/13/22 20:29 Blood Pressure 134/96 H 02/13/22 20:29 Pulse Oximetry 100 02/13/22 20:29 Oxygen Delivery Room Air 02/13/22 20:29 Temperature 99.2 F 02/13/22 20:29 Pulse Rate 93 02/13/22 20:29 Respiratory Rate 16 02/13/22 20:29 Blood Pressure 134/96 H 02/13/22 20:29 Pulse Oximetry 100 02/13/22 20:29 Oxygen Delivery Room Air 02/13/22 20:29 Procedures Abscess I/D face: Date of Incision: 02/13/22 Side (if applicable): right Sedation/analgesia: none Local Anesthetic: lidocaine 1% Amount of anesthesia used (mL): 4 Technique: incised with #11 blade Amount of fluid expressed (mL): 4 Irrigation: No Packing used?: none I&D Results: Pus and Blood Medical Decision Making MDM Narrative Medical decision making narrative: This is a 36-year-old presenting with a facial abscess. An I and D was performed successfully. Due to the location a mental an infraorbital nerve block were used with excellent pain control. Patient will be discharged on antibiotics with primary care follow/up. Vital Signs Vital Signs: Vital Signs Temperature 99.2 F 02/13/22 20:29 Pulse Rate 93 02/13/22 20:29 Respiratory Rate 16 02/13/22 20:29 Blood Pressur
== END 2022-02-13 23:13 | disposition home or self-care (01) ==
PROVIDERS: Emergency Provider Emergency Medicine
DX: L02.01 Cutaneous abscess of face (principal); F17.210 Nicotine dependence, cigarettes, uncomplicated; I10 Essential (primary) hypertension
CPT/HCPCS: 10060; 99283

== ENCOUNTER 2022-11-16 19:40 | Emergency (ER) | payer BC, SELFPAY ==
[2022-11-16 19:46] VITALS: BP 141/97; PULSE 55; RESP 18; TEMP 36.4; O2SAT 100
[2022-11-16 21:36] VITALS: BP 130/95; PULSE 69; RESP 14; O2SAT 100
--- NOTE | 2022-11-17 00:02 | PC.NURSE ---
No answer for vital signs at [id number]
== END 2022-11-17 01:33 | disposition left against medical advice (07) ==
DX: R10.9 Unspecified abdominal pain (principal)
CPT/HCPCS: 99199